=== PATIENT | male | born 1930 | race Caucasian/White ===

== ENCOUNTER 2016-11-19 12:41 | Inpatient (IN) | payer MEDICARE ==
[2016-11-19 13:32] LABS: BASOPHIL 0.5 % (0-2); EOSINOPHIL 3.8 % (0-7); HCT 40.8 % (42.0-52.0); HGB 14.1 g/dl (13.2-18.0); LYMPHOCYTE 13.5 % (15-48); MCH 30.7 pg (25.0-31.0); MCHC 34.6 g/dL (32.0-36.0); MCV 88.7 fL (78.0-100.0); MONOCYTE 9.4 % (0-12); MPV 9.8 fL (6.0-9.5); NEUTROPHIL 72.8 % (41-80); PLT 180 K/uL (150-400); RDW 13.4 % (11.5-14.0); WBC 5.8 K/uL (4.0-10.5)
[2016-11-19 13:49] LABS: ALBUMIN 3.7 g/dL (3.4-4.8); BILIRUBIN - TOTAL 2.2 mg/dL (0.1-1.0); GLOBULIN (CALCULATION) 2.9 g/dL (2.2-4.2); POTASSIUM 3.7 mmol/L (3.5-5.1); TOTAL PROTEIN 6.6 g/dL (6.4-8.3)
[2016-11-19 13:51] LABS: CKMB 4.16 ng/mL (0.97-4.94); TROPONIN T 0.065 ng/mL
[2016-11-20 04:52] LABS: HCT 40.2 % (42.0-52.0); HGB 13.6 g/dl (13.2-18.0); MCH 30.2 pg (25.0-31.0); MCHC 33.8 g/dL (32.0-36.0); MCV 89.3 fL (78.0-100.0); MPV 10.1 fL (6.0-9.5); RBC 4.5 M/uL (4.70-6.00); RDW 13.7 % (11.5-14.0); WBC 5.4 K/uL (4.0-10.5)
[2016-11-20 05:12] LABS: ALBUMIN 3.4 g/dL (3.4-4.8); BILIRUBIN - TOTAL 1.8 mg/dL (0.1-1.0); GLOBULIN (CALCULATION) 3.1 g/dL (2.2-4.2); POTASSIUM 3.3 mmol/L (3.5-5.1); TOTAL PROTEIN 6.5 g/dL (6.4-8.3)
[2016-11-21 06:10] LABS: HCT 37.2 % (42.0-52.0); HGB 12.5 g/dl (13.2-18.0); MCH 30.2 pg (25.0-31.0); MCHC 33.6 g/dL (32.0-36.0); MCV 89.9 fL (78.0-100.0); MPV 9.3 fL (6.0-9.5); RBC 4.14 M/uL (4.70-6.00); RDW 13.7 % (11.5-14.0); WBC 4.4 K/uL (4.0-10.5)
[2016-11-21 06:27] LABS: ALBUMIN 3.3 g/dL (3.4-4.8); BILIRUBIN - DIRECT 0.3 mg/dL (0.0-0.2); BILIRUBIN - TOTAL 1.1 mg/dL (0.1-1.0); CREATININE 0.9 mg/dL (0.7-1.2); GLOBULIN (CALCULATION) 2.5 g/dL (2.2-4.2); POTASSIUM 3.7 mmol/L (3.5-5.1); TOTAL PROTEIN 5.8 g/dL (6.4-8.3)
[2016-11-21] MEDS ORDERED: AUGMENTIN 875-1 EACH PO (15:26)
[2016-11-21] MEDS ORDERED: NITROQUIK SL0.4 MG SL (15:27)
[2016-11-21] MEDS ORDERED: COREG 6.25MG6.25 MG PO (15:27)
[2016-11-21] MEDS ORDERED: ASPIRIN81 MG PO (15:33)
[2016-11-21] MEDS ORDERED: GLUCOSAMINE1000 MG PO (15:38)
[2016-11-21] MEDS ORDERED: ASCORBIC ACID500 MG PO (15:38)
[2016-11-21] MEDS ORDERED: LANTUS **100 UNITS/ SQ (15:38)
== END 2016-11-21 15:15 | disposition home health service (06) | DRG 440 ==
LOC: FER 12:41 → FMS 16:00
PROVIDERS: Emergency Medicine; ADMIT Internal Medicine
DX: K85.90 Acute pancreatitis without necrosis or infection, unspecified (principal); E11.9 Type 2 diabetes mellitus without complications; G30.9 Alzheimer's disease, unspecified; I10 Essential (primary) hypertension; F02.80 Dementia in other diseases classified elsewhere, unspecified severity, without behavioral disturbance, psychotic disturbance, mood disturbance, and anxiety; Z95.810 Presence of automatic (implantable) cardiac defibrillator; Z86.73 Personal history of transient ischemic attack (TIA), and cerebral infarction without residual deficits; M47.9 Spondylosis, unspecified; Z66 Do not resuscitate; Z79.82 Long term (current) use of aspirin
CPT/HCPCS: 36415; 70450; 71010; 72131; 72170; 80053; 80076; 82550; 82553; 82962; 83690; 84484; 85025; 87040; 93005; 97110; 97116; 97163; 97167; 97530; 97530-GP; 97535; J2543; Q9967